=== PATIENT | female | born 1970 | race Caucasian/White ===

== ENCOUNTER 2018-04-17 06:39 | Observation (INO) | payer OTHER ==
[~2018-04-17] VITALS: Ht 162.6 cm; Wt 88.5 kg
[2018-04-17 07:05] LABS: BASOPHILS ABSOLUTE AUTO 0.16 K/mm3 (0.00-0.23); BASOPHILS PERCENT AUTO 1 % (0-2); EOSINOPHILS ABSOLUTE AUTO 0.38 K/mm3 (0.00-0.68); EOSINOPHILS PERCENT AUTO 2 % (0-6); Hemoglobin 15.4 g/dL (11.5-16.0); IMMATURE GRAN ABSOLUTE AUTO 0.14 K/mm3 (0.00-0.10); IMMATURE GRAN PERCENT AUTO 1 % (0-1); LYMPHOCYTES ABSOLUTE AUTO 4.56 K/mm3 (0.84-5.20); LYMPHOCYTES PERCENT AUTO 22 % (21-46); MONOCYTES ABSOLUTE AUTO 1.88 K/mm3 (0.16-1.47); MONOCYTES PERCENT AUTO 9 % (4-13); Mean Corpuscular HGB 29.9 pg (26.0-34.0); Mean Corpuscular HGB Conc 32.8 g/dL (31.5-36.5); Mean Corpuscular Volume 91 fL (80-100); NEUTROPHILS ABSOLUTE AUTO 13.26 K/mm3 (1.96-9.15); NEUTROPHILS PERCENT AUTO 65 % (41-73); Platelet Count 508 K/mm3 (150-400); RDW Coefficient Variation 13.5 % (11.7-14.2); RDW Standard Deviation 45.6 fL (35.1-46.3); Red Blood Cell Count 5.15 M/mm3 (3.80-5.20); White Blood Cell Count 20.38 K/mm3 (4.00-11.30)
[2018-04-17 07:26] LABS: Alanine Aminotransfer (ALT/SGP 24 U/L (12-78); Albumin, Blood 3.5 g/dL (3.4-5.0); Albumin/Globulin Ratio 0.9 (0.8-1.8); Alk Phos 93 U/L (50-136); Anion Gap 12 mmol/L (6-16); Aspartate Aminotrans (AST/SGOT 14 U/L (12-37); Bilirubin, Total 0.4 mg/dL (0.1-1.0); Blood Urea Nitrogen 13 mg/dL (8-24); Bun/Creatinine Ratio 16.6 (12.0-20.0); CO2, Blood 21 mmol/L (21-32); Calcium, Blood 9.2 mg/dL (8.5-10.1); Chloride, Blood 112 mmol/L (98-108); Creatinine, Blood 0.78 mg/dL (0.40-1.00); Globulin, Blood 3.9 g/dL (2.2-4.0); Glomerular Filtration Rate >60 (60-); Glucose, Blood 109 mg/dL (70-99); Potassium, Blood 4.3 mmol/L (3.5-5.5); Sodium, Blood 145 mmol/L (136-145); Total Protein, Blood 7.4 g/dL (6.4-8.2); Troponin I <0.015 ng/mL (0.000-0.040)
[2018-04-17] MEDS ORDERED: PANT40 PO (09:39)
[2018-04-17] MEDS ORDERED: ONDA8 PO (09:39)
[2018-04-17] MEDS ORDERED: GABA300 PO (09:40)
[2018-04-17] MEDS ORDERED: QUET200 PO (09:40)
[2018-04-17] MEDS ORDERED: PRAZ5 PO (09:41)
[2018-04-17] MEDS ORDERED: Zantac150 MG PO (09:41)
[2018-04-17] MEDS ORDERED: ACET500 PO (09:42)
[2018-04-17] MEDS ORDERED: CLON.5 PO (09:42)
[2018-04-17] MEDS ORDERED: CYCL10 PO (09:42)
[2018-04-17] MEDS ORDERED: Azor 10-20 MG1 EACH PO (09:43)
[2018-04-17] MEDS ORDERED: BUPR150ER PO (09:43)
[2018-04-17] MEDS ORDERED: ALBU90OI61 INH (09:44)
[2018-04-17] MEDS ORDERED: BUSP10 PO (09:44)
[2018-04-17] MEDS ORDERED: Dyazide 37.5-21 EACH PO (09:47)
[2018-04-17 13:27] LABS: CPK Creatine Kinase 46 U/L (26-193)
[2018-04-17 13:30] LABS: Creatine Kinase MB <0.5 ng/mL (0.0-3.6); Creatine Kinase MB Index Unable to Calculate (0.0-4.0); Troponin I <0.015 ng/mL (0.000-0.040)
[2018-04-17] MEDS ORDERED: DIPH50 PO (16:05)
[2018-04-17] MEDS ORDERED: LACT10SY PO (16:07)
[2018-04-17 18:58] LABS: CPK Creatine Kinase 49 U/L (26-193); Troponin I <0.015 ng/mL (0.000-0.040)
[2018-04-17 18:59] LABS: Creatine Kinase MB <0.5 ng/mL (0.0-3.6); Creatine Kinase MB Index Unable to Calculate (0.0-4.0)
[2018-04-17 22:59] LABS: Source, Urine Clean Catch
[2018-04-17 23:02] LABS: Bilirubin, Urine Neg (Neg); Blood, Urine Neg (Neg); Glucose Qualitative, Urine Neg (Neg); Ketones, Urine Neg (Neg); Leukocyte Esterase, Urine Neg (Neg); Nitrite, Urine Neg (Neg); Protein, Urine Neg (Neg); Specific Gravity, Urine 1.005 (1.003-1.022); Urobilinogen, Urine NORM (Normal)
[2018-04-17 23:05] LABS: Appearance, Urine Clear (Clear); Color, Urine Yellow (P-Yellow)
[2018-04-17 23:12] LABS: U Amphetamine Screen Not Detected; U Barbituate Screen Not Detected; U Benzodiazapine Screen Not Detected; U Buprenorphine Screen Not Detected; U Cannabinoids Screen DETECTED; U Cocaine Screen Not Detected; U Methadone Screen Not Detected; U Methamphetamine Screen Not Detected; U Opiates Screen DETECTED; U Oxycodone Screen Not Detected; U Phencyclidine Screen Not Detected; U Propoxyphene Screen Not Detected
[2018-04-18 05:16] LABS: BASOPHILS ABSOLUTE AUTO 0.03 K/mm3 (0.00-0.23); BASOPHILS PERCENT AUTO 0 % (0-2); EOSINOPHILS ABSOLUTE AUTO 0.01 K/mm3 (0.00-0.68); EOSINOPHILS PERCENT AUTO 0 % (0-6); Hematocrit 40.5 % (33.0-51.0); Hemoglobin 13.2 g/dL (11.5-16.0); IMMATURE GRAN PERCENT AUTO 1 % (0-1); LYMPHOCYTES ABSOLUTE AUTO 2.48 K/mm3 (0.84-5.20); LYMPHOCYTES PERCENT AUTO 13 % (21-46); MONOCYTES ABSOLUTE AUTO 1.15 K/mm3 (0.16-1.47); MONOCYTES PERCENT AUTO 6 % (4-13); Mean Corpuscular HGB 30.1 pg (26.0-34.0); Mean Corpuscular HGB Conc 32.6 g/dL (31.5-36.5); Mean Corpuscular Volume 93 fL (80-100); Mean Platelet Volume 9.9 fL (9.1-12.4); NEUTROPHILS ABSOLUTE AUTO 15.13 K/mm3 (1.96-9.15); NEUTROPHILS PERCENT AUTO 80 % (41-73); Platelet Count 362 K/mm3 (150-400); RDW Coefficient Variation 13.3 % (11.7-14.2); RDW Standard Deviation 45.7 fL (35.1-46.3); Red Blood Cell Count 4.38 M/mm3 (3.80-5.20)
[2018-04-18 05:35] LABS: Anion Gap 9 mmol/L (6-16); Blood Urea Nitrogen 11 mg/dL (8-24); Bun/Creatinine Ratio 15.9 (12.0-20.0); CO2, Blood 24 mmol/L (21-32); Chloride, Blood 109 mmol/L (98-108); Creatinine, Blood 0.69 mg/dL (0.40-1.00); Glomerular Filtration Rate >60 (60-); Glucose, Blood 120 mg/dL (70-99); Potassium, Blood 3.8 mmol/L (3.5-5.5); Sodium, Blood 142 mmol/L (136-145); Triglycerides 112 mg/dL (30-160)
[2018-04-18 05:37] LABS: Cholesterol 202 mg/dL (50-200)
[2018-04-18] MEDS ORDERED: ATEN25 PO (13:04)
[2018-04-18] MEDS ORDERED: LEVO750 PO (13:05)
== END 2018-04-18 13:43 | disposition home or self-care (01) ==
LOC: ER 06:39 → MEDS 06:40 → EDBD 06:40 → MEDS 11:56 → ENPENDDIS 04-18 12:00 → MEDS 04-18 13:43
PROVIDERS: Emergency Medicine; Family Medicine
DX: R07.9 Chest pain, unspecified (principal); R55 Syncope and collapse; F31.9 Bipolar disorder, unspecified; J44.9 Chronic obstructive pulmonary disease, unspecified; I10 Essential (primary) hypertension; D72.829 Elevated white blood cell count, unspecified; D47.3 Essential (hemorrhagic) thrombocythemia; R39.15 Urgency of urination; K58.2 Mixed irritable bowel syndrome; Z88.0 Allergy status to penicillin; Z79.01 Long term (current) use of anticoagulants; Z88.1 Allergy status to other antibiotic agents; Z91.040 Latex allergy status; Z79.899 Other long term (current) drug therapy
CPT/HCPCS: 36415; 71045; 71260; 76770; 80048; 80053; 81003; 82465; 82550; 82553; 83605; 83690; 84145; 84443; 84478; 84484; 84703; 85025; 93005; 93010; 94760; 94762; 96361; 96365; 96366; 96372; 96374; 96375; 96376; 99285; G0378; J1650; J1956; J2405; J2765; J2930; J7030; Q9967